=== PATIENT | female | born 1995 | race Caucasian/White ===

== ENCOUNTER 2016-07-25 13:30 | Day surgery (SDC) | payer OTHER ==
[~2016-07-25 13:30] MED LIST: ACETAMINOPHEN 500 MG TAB PO ONE; BUPIVACAINE/EPI 0.25% 30 ML SDV ONE; EPINEPHrine 30 MG/30 ML MDV ONE; PREGABALIN 150 MG CAP PO ONE; PROPOFOL 200 MG/20 ML VIAL ONE; PROPOFOL/EMULSION 500 MG/50 ML BOTTLE IV ONE; SCOPOLAMINE HYDROBROMIDE 1.5 MG PATCH TD ONE; SURGIFLO MATRIX KIT WITH THROMBIN TP ONE; TRANEXAMIC ACID 1,000 MG in NS 100 ML IV ONE; ceFAZolin 2 GM/DEXTROSE 100 ML IV ONE; fentaNYL 100 MCG/2 ML INJ ONE
[2016-07-25 13:55] LABS: HEMATOCRIT 43.7 % (38.0-47.0); HEMOGLOBIN 14.9 g/dL (12.6-16.3)
[2016-07-25] MEDS ORDERED: ACETAMINOPHEN 500 MG TAB ONE (14:05)
[2016-07-25] MEDS ORDERED: SCOPOLAMINE HYDROBROMIDE 1.5 MG PATCH TD ONE (14:05)
[2016-07-25] MEDS ORDERED: CEFAZOLIN 2 GM/DEXTROSE/100 ML BAG IV ONE (14:06)
[2016-07-25] MEDS ORDERED: PREGABALIN 150 MG CAP ONE (14:06)
[2016-07-25] MEDS ORDERED: PROPOFOL/EMULSION 500 MG/50 ML BOTTLE IV ONE ×2 (14:17→16:45)
[2016-07-25] MEDS ORDERED: ROCURONIUM 50 MG/5 ML VIAL ONE ×3 (14:17→14:39)
[2016-07-25] MEDS ORDERED: ONDANSETRON 4 MG/2 ML VIAL ONE ×2 (14:24→16:42)
[2016-07-25] MEDS ORDERED: DEXAMETHASONE 4 MG/ML VIAL ONE ×2 (14:24→16:42)
[2016-07-25] MEDS ORDERED: fentaNYL 100 MCG/2 ML INJ ONE ×3 (14:27→19:22)
[2016-07-25] MEDS ORDERED: MIDAZOLAM 2 MG/2 ML VIAL ONE ×2 (14:27→15:09)
[2016-07-25] MEDS ORDERED: PHENYLEPHRINE HCL 100 MCG/ML SYR ONE (14:34)
[2016-07-25] MEDS ORDERED: METOCLOPRAMIDE 10 MG/2 ML VIAL ONE (16:42)
[2016-07-25] MEDS ORDERED: RANITIDINE 50 MG/2 ML VIAL ONE (16:42)
[2016-07-25] MEDS ORDERED: LABETALOL HCL 5 MG/ML 20 ML MDV ONE (16:45)
[2016-07-25] MEDS ORDERED: NEOSTIGMINE METHYLSULFATE 5 MG/5 ML SYR ONE (18:29)
[2016-07-25] MEDS ORDERED: GLYCOPYRROLATE 0.2 MG/1 ML VIAL ONE ×2 (18:29)
[2016-07-25] MEDS ORDERED: HYDROmorphONE/DILAUDID 1 MG/ML SYR ONE (19:22)
[2016-07-25] MEDS ORDERED: NEOMY SULF/BACITRAC ZN/POLY 30 GM OINTTUBE TP ONE (20:15)
[2016-07-25] MEDS ORDERED: OXYCODONE/APAP 5/325 TAB ONE (20:59)
== END 2016-07-25 21:45 | disposition home or self-care (01) ==
LOC: EDSTATUS 13:30 → FSGY 13:30
PROVIDERS: ATTEND Orthopaedic Surgery Sports Medicine
DX: M25.851 Other specified joint disorders, right hip (principal); M24.051 Loose body in right hip; M24.851 Other specific joint derangements of right hip, not elsewhere classified
CPT/HCPCS: 29861; 29916; 76001; C1769; C1713; J0690; J1100; J1170; J1200; J2250; J2370; J2405; J2704; J2710; J2765; J2780; J3010; J3490

== ENCOUNTER 2016-07-28 05:57 | Inpatient (IN) | payer OTHER ==
--- NOTE | 2016-07-27 12:38 | PDANEPAE ---
ANE History of Present Illness R hip dysplasia ANE Past Medical History - Cardiovascular History Hx Hypertension: No Hx Arrhythmias: No Hx Chest Pain: No Hx Coronary Artery / Peripheral Vascular Disease: No Hx CHF / Valvular Disease: No Hx Palpitations: No - Pulmonary History Hx COPD: No Hx Asthma/Reactive Airway Disease: No Hx Recent Upper Respiratory Infection: No Hx Oxygen in Use at Home: No - Neurologic History Hx Cerebrovascular Accident: No Hx Seizures: No Hx Dementia: No - Endocrine History Hx Diabetes: No - Renal History Hx Renal Disorders: No - Liver History Hx Hepatic Disorders: No - Neurological & Psychiatric Hx Hx Neurological and Psychiatric Disorders: Yes - Cancer History Hx Cancer: No - Congenital Disorder History Hx Congenital Disorders: No - GI History Hx Gastrointestinal Disorders: No - Chronic Pain History Chronic Pain: Yes (RIGHT HIP) ANE Review of Systems - Exercise capacity METS (RN): 5 METS (active despite hip pain) - Systems Muscolosketal: Reports: joint pain (R hip pain secondary to hip dysplasia) Neurological: Reports: other (ADHD on meds) ANE Patient History - Allergies Allergies/Adverse Reactions: Sulfa (Sulfonamide Antibiotics) Allergy (Severe, Verified 07/16/16 11:00) Rash - Home Medications Home Medications: Dexmethylphenidate HCl [Focalin Xr] 25 mg PO DAILY 07/16/16 [Last Taken Unknown] Minocycline HCl [Minocin 100 mg] 100 mg PO DAILY 07/16/16 [Last Taken Unknown] - Anes Hx Anes Hx: post operative nausea and vomiting Hx Anesthesia Complications (with details): Anorexia and N/V for 2 weeks post op with previous surgery - Smoking Hx Smoking Status: Never smoked Marijuana use: No - Alcohol Use Alcohol Use: None ANE Labs/Vital Signs - Vital Signs Height: 177.8 cm Weight: 70.307 kg ANE Anesthesia Plan Anesthesia Plan: general endotracheal anesthesia (Plan GA intraoperatively plus JENNY for post op pain relief), epidural
[~2016-07-28 05:57] MED LIST changes: +ACETAMINOPHEN 500 MG TAB ONE; -ACETAMINOPHEN 500 MG TAB PO ONE; -BUPIVACAINE/EPI 0.25% 30 ML SDV ONE; +CEFAZOLIN 2 GM/DEXTROSE/100 ML BAG IV ONE; -EPINEPHrine 30 MG/30 ML MDV ONE; +LIDOCAINE 1% 2 ML INJ ONE; +PREGABALIN 150 MG CAP ONE; -PREGABALIN 150 MG CAP PO ONE; -PROPOFOL 200 MG/20 ML VIAL ONE; -PROPOFOL/EMULSION 500 MG/50 ML BOTTLE IV ONE; -SURGIFLO MATRIX KIT WITH THROMBIN TP ONE; -TRANEXAMIC ACID 1,000 MG in NS 100 ML IV ONE; -ceFAZolin 2 GM/DEXTROSE 100 ML IV ONE; -fentaNYL 100 MCG/2 ML INJ ONE
[2016-07-28] MEDS ORDERED: PREGABALIN 150 MG CAP PO ONE (06:00)
[2016-07-28] MEDS ORDERED: ACETAMINOPHEN 500 MG TAB PO ONE (06:00)
[2016-07-28] MEDS ORDERED: ceFAZolin 2 GM/DEXTROSE 100 ML IV ONE (06:00)
[2016-07-28] MEDS ORDERED: SCOPOLAMINE HYDROBROMIDE 1.5 MG PATCH TD ONE (06:00)
[2016-07-28] MEDS ORDERED: TRANEXAMIC ACID 1,000 MG in NS 100 ML IV ONE (06:00)
[2016-07-28] MEDS ORDERED: LR 1,000 ML IV ONE (06:27)
[2016-07-28] MEDS ORDERED: LIDOCAINE 1% 5 ML SDV ID PRN (06:27)
--- NOTE | 2016-07-28 06:36 | PDHPUP ---
History & Physical Update H&P update statement: This history and physical update is based on an assessment of the patient which was completed after admission or registration (within 24 hours), but prior to the surgery/procedure. H&P update: no change in patient's condition since H&P completed
[2016-07-28] MEDS ORDERED: LIDOCAINE 1% 5 ML SDV ONE (06:44)
--- NOTE | 2016-07-28 07:02 | PDANEPAE ---
ANE History of Present Illness Hip Dysplasia ANE Past Medical History - Cardiovascular History Hx Hypertension: No Hx Arrhythmias: No Hx Chest Pain: No Hx Coronary Artery / Peripheral Vascular Disease: No Hx CHF / Valvular Disease: No Hx Palpitations: No - Pulmonary History Hx COPD: No Hx Asthma/Reactive Airway Disease: No Hx Recent Upper Respiratory Infection: No Hx Oxygen in Use at Home: No - Neurologic History Hx Cerebrovascular Accident: No Hx Seizures: No Hx Dementia: No - Endocrine History Hx Diabetes: No - Renal History Hx Renal Disorders: No - Liver History Hx Hepatic Disorders: No - Neurological & Psychiatric Hx Hx Neurological and Psychiatric Disorders: Yes - Cancer History Hx Cancer: No - Congenital Disorder History Hx Congenital Disorders: No - GI History Hx Gastrointestinal Disorders: No - Chronic Pain History Chronic Pain: Yes (RT HIP,RT LEG) ANE Review of Systems - Exercise capacity METS (RN): 5 METS (5+ METS) - Systems Neurological: Reports: other (ADHD) ANE Patient History - Allergies Allergies/Adverse Reactions: Sulfa (Sulfonamide Antibiotics) Allergy (Severe, Verified 07/16/16 11:00) Rash - Home Medications Home medications: home medication list seen and reviewed Home Medications: Dexmethylphenidate HCl [Focalin Xr] 25 mg PO DAILY 07/16/16 [Last Taken 07/27/16 ] Minocycline HCl [Minocin 100 mg] 100 mg PO DAILY 07/16/16 [Last Taken 07/27/16] - NPO status NPO Since - Liquids (Date): 07/27/16 NPO Since - Liquids (Time): 20:30 NPO Since - Solids (Date): 07/27/16 NPO Since - Solids (Time): 19:30 - Anes Hx Anes Hx: post operative nausea (and anorexia) - Smoking Hx Smoking Status: Never smoked - Alcohol Use Alcohol Use: Rarely - Family Anes Hx Family Anes Hx: none ANE Labs/Vital Signs - Labs - CBC WBC: CBC reviewed and okay - Vital Signs Blood Pressure: 128/76 O2 Sat (%): 96 Height: 177.8 cm Weight: 70.307 kg ANE Physical Exam - Airway Neck exam: FROM Mallampati Score: Class 1 Mouth exam: normal dental/mouth exam (prominant upper teeth) - Pulmonary Pulmonary: no respiratory distress - Cardiovascular Cardiovascular: regular rate and rhythym - ASA Status ASA Status: I ANE Anesthesia Plan Anesthesia Plan: general endotracheal anesthesia, epidural (PSR postop pain relief)
[2016-07-28] MEDS ORDERED: fentaNYL 100 MCG/2 ML INJ ONE ×3 (07:14→12:42)
[2016-07-28] MEDS ORDERED: MIDAZOLAM 2 MG/2 ML VIAL ONE ×2 (07:14→12:42)
--- NOTE | 2016-07-28 07:27 | PDGENHP ---
History and Physical - Chief Complaint right hip pain History Information - Allergies/Home Medication List Allergies/Adverse Reactions: Sulfa (Sulfonamide Antibiotics) Allergy (Severe, Verified 07/16/16 11:00) Rash Home Medications: Dexmethylphenidate HCl [Focalin Xr] 25 mg PO DAILY 07/16/16 [Last Taken 07/27/16 ] Minocycline HCl [Minocin 100 mg] 100 mg PO DAILY 07/16/16 [Last Taken 07/27/16] I have personally reviewed and updated: medical history - Past Medical History no pertinent PMH - Surgical History Reports: no pertinent surgical hx - Family History Positive for: non-pertinent - Social History Smoking Status: Never smoked Alcohol Use: None Drug Use: None Review of Systems Constitutional: Reports: no symptoms EENMT: Reports: no symptoms Cardiac: Reports: no symptoms Respiratory: Reports: no symptoms Gastrointestinal: Reports: no symptoms Genitourinary: Reports: no symptoms Muscolosketal: Reports: joint pain Skin: Reports: no symptoms Neurological: Reports: no symptoms Hematologic/Lymphatic: Reports: no symptoms Immunologic/Allergy: Reports: no symptoms Physical Exam Temp Pulse Resp BP Pulse Ox 36.9 C 128/76 H 96 07/28/16 06:31 07/28/16 07:03 07/28/16 07:03 Constitutional: no apparent distress Eyes: PERRL Ears, Nose, Mouth, Throat: moist mucous membranes Cardiovascular: regular rate and rhythym Respiratory: no respiratory distress, clear to auscultation Gastrointestinal: soft, non-tender abdomen Skin: normal color Musculoskeletal: joint tenderness Neurologic: AAOx3, sensation intact bilaterally Psychiatric: interacting appropriately Lymph, Heme, Immunologic: no cervical LAD Assessment & Plan Assessment: Right hip dysplasia Plan: Right ANNELIESE
[2016-07-28] MEDS ORDERED: REMIFENTANIL HCL 1 MG VIAL ONE ×2 (07:31→10:10)
[2016-07-28] MEDS ORDERED: PROPOFOL/EMULSION 500 MG/50 ML BOTTLE IV ONE ×2 (07:32→10:12)
[2016-07-28] MEDS ORDERED: ONDANSETRON 4 MG/2 ML VIAL ONE (07:33)
[2016-07-28] MEDS ORDERED: DEXAMETHASONE 4 MG/ML VIAL ONE ×2 (07:33)
[2016-07-28] MEDS ORDERED: BUPIVACAINE 0.25% 30 ML SDV ONE ×2 (07:50→12:35)
[2016-07-28] MEDS ORDERED: CITRATE DEXTROSE SOLN 500 ML BAG ONE (07:59)
[2016-07-28] MEDS ORDERED: NALOXONE HCL 0.4 MG/ML INJ IVP PRN ×2 (08:37→12:05)
[2016-07-28] MEDS ORDERED: NARCOTIC DRIP BAG-TOTAL ALL TYPES EP PRN (08:37)
[2016-07-28] MEDS ORDERED: LIDOCAINE HCL 160 MG/4 ML LTA KIT TP ONE (10:16)
[2016-07-28] MEDS ORDERED: epHEDrine SULFATE 10 MG/ML SYR ONE (10:52)
[2016-07-28] MEDS ORDERED: LABETALOL HCL 5 MG/ML 20 ML MDV IVP PRN (12:05)
[2016-07-28] MEDS ORDERED: PROMETHAZINE HCL 25 MG/ML INJ IVP PRN (12:05)
[2016-07-28] MEDS ORDERED: DEXAMETHASONE 4 MG/ML VIAL IVP PRN (12:05)
[2016-07-28] MEDS ORDERED: OXYCODONE/APAP 5/325 TAB PO PRN (12:05)
[2016-07-28] MEDS ORDERED: fentaNYL 100 MCG/2 ML INJ IVP PRN (12:05)
[2016-07-28] MEDS ORDERED: MEPERIDINE 25 MG/ML SYR IVP PRN (12:05)
[2016-07-28] MEDS ORDERED: HYDROCODONE/APAP 5/325 TAB PO PRN (12:05)
[2016-07-28] MEDS ORDERED: LR 500 ML IV PRN (12:05)
[2016-07-28] MEDS ORDERED: ONDANSETRON 4 MG/2 ML VIAL IVP PRN ×2 (12:05→12:58)
[2016-07-28] MEDS ORDERED: METOCLOPRAMIDE 10 MG/2 ML VIAL IVP PRN (12:05)
[2016-07-28] MEDS ORDERED: DIAZEPAM 2 MG TAB PO PRN (12:58)
[2016-07-28] MEDS ORDERED: BISACODYL 10 MG SUPP PR PRN (12:58)
[2016-07-28] MEDS ORDERED: MAGNESIUM HYDROXIDE 30 ML UDCUP PO PRN (12:58)
[2016-07-28] MEDS ORDERED: LACTULOSE 20 GM/30 ML UDCUP PO PRN (12:58)
--- NOTE | 2016-07-28 13:31 | POSTANESTH ---
Post Anesthetic Evaluation Cardiovascular Status: Normal, Stable Respiratory Status: Normal, Stable Level of Consciousness/Mental Status: Can Participate in Eval, Alert and Oriented, Mildly Sleepy, Arousable Pain Control: Adequate, Prn Tx Ordered (required JENNY bolu plus Versed/Fent in PACU, good control now) Nausea/Vomiting Control: Adequate, Prn Tx Ordered (existing scope patch in place ) Complications Possibly Related to Anesthesia: None Noted Notes: JENNY working
[2016-07-28] MEDS: HYDROmorph 10MCG/ML&BUP 0.05% in 100ML NS EP SCH (13:36)
[2016-07-28] MEDS: REGARDING ANTICOAG MISC SCH (14:12)
[2016-07-28] MEDS: DC NARCS MISC SCH (14:12)
[2016-07-28] MEDS: ACETAMINOPHEN 325 MG TAB PO PRN (17:57)
[2016-07-28] MEDS: SENNOSIDES/DOCUSATE SODIUM TAB PO SCH (21:26)
--- NOTE | 2016-07-28 22:29 | SUROPNOTE ---
JOSE Operative Report - Surgery Surgery was performed at [facility] 07/28/16 Diagnosis: Right 1. Hip Acetabular Dysplasia Operation: Right~Oneyda Acetabular Osteotomy (ANNELIESE) Surgeon: Malachi Jeong MD Rn Orthopaedic:~~Abner ENRIQUEZ Anesthetic: General + epidural Procedure: General anesthetic. Antibiotics given. Cell saver in use. Fluoroscopy. Phase 1: Position lateral, diagonal skin incision between ischial tuberosity and greater trochanter as for posterior hip approach. Blunt split of glut max fibers. Identification of fat pad overlying sciatic nerve. Exposure of sciatic nerve under fat pad, gently retracting it away-medially to ischial tuberosity. Exposure of subcotoloid fossa proximal to short rotators. Using osteotomes and under fluoroscopy, osteotomy of subcotoloid fossa to sciatic notch proximal to ischial spine. Closure of lateral cut. Patient is turned supine. Phase 2: Skin incision just distal to ASIS. Using diathermy the iliac spine was exposed and inguinal ligament + Sartorious were retracted medially, taking the LFCN with them, protecting it. Inner ilium was dissected from iliacus muscle bluntly , with a cob and swab. Dissection continued towards lateral superior ramus pubis. Using fluoroscopy an osteotomy of lateral superior ramus, just medial to tear drop, was performed with curved fish mouth osteotome. Phase 3: Osteotomy lines of the ilium were marked with diathermy as pre planned according to XR/CT and expected correction of acatabulum. 2 Shanz screws were drilled into central acetabular fragment, corresponding with planned correction angles, in order to mobilize central acetabular fragment after osteotomy is complete. ~Iliac osteotomy was performed with reciprocating saw and the main acetabular fragment was moved to realign weight bearing position. After confirmation of correction using fluoroscopy in AP and false profile planes, the fragment was fixed with 2 - 5.5mm ~full threaded~screws~and 1 - 4mm~~full threaded~screw. Inguinal ligament and Sartorious were attached back to ASIS through drill holes. Incision was closed according to soft tissue layers. Skin was closed with subdermal Monocryl. Final fluoro shots were obtained to confirm position/correction. After surgery Eliane~moved both lower limbs and had no NV motor compromise. Evaluation under anesthesia: IR at 90 degrees hip flexion prior to ANNELIESE was 40~degrees and after ANNELIESE was 25~ degrees. Bleedin~cc into cell-saver, 270~of blood products were returned to patient. Post op instructions: 1. Non~weight bearing crutches for 2~weeks, PWB for 4w 2. Epidural analgesia for 24-48 hours 3. Continuous SCD 4. Aspirin 81 mg X1 day once Epidural is discontinued 5. Avoid hip flexion past 90 and hip External rotation. 6. PT according to my recommendations at follow up visit Kind regards, Dr. Malachi Jeong .
[2016-07-29] MEDS: HYDROmorph 10MCG/ML&BUP 0.05% in 100ML NS EP SCH (01:21)
[2016-07-29 05:52] LABS: HEMATOCRIT 29.5 % (38.0-47.0); MEAN CELL HEMOGLOBIN 30.9 pg (27.9-34.1); MEAN CELL HEMOGLOBIN CONCENTR. 33.9 g/dL (32.4-36.7); RED BLOOD CELL COUNT 3.24 10^6/uL (4.18-5.33); RED CELL DISTRIBUTION WIDTH 12.5 % (11.5-15.2)
[2016-07-29 06:17] LABS: ANION GAP 5 mEq/L (8-16); CALCIUM 8.6 mg/dL (8.5-10.4); CARBON DIOXIDE 25 mEq/l (22-31); CHLORIDE 105 mEq/L (97-110); CREATININE 0.7 mg/dL (0.6-1.0); GLOMERULAR FILTRATION RATE > 60; GLUCOSE 88 mg/dL (70-100); POTASSIUM 3.8 mEq/L (3.5-5.2); SODIUM 135 mEq/L (134-144)
[2016-07-29] MEDS: DEXMETHYLPHENIDATE HCL 25 MG PO SCH (10:16)
[2016-07-29] MEDS: DC NARCS MISC SCH (10:16)
[2016-07-29] MEDS: SENNOSIDES/DOCUSATE SODIUM TAB PO SCH ×2 (10:17→20:53)
[2016-07-29] MEDS: REGARDING ANTICOAG MISC SCH (10:17)
[2016-07-29] MEDS: ACETAMINOPHEN 325 MG TAB PO PRN ×2 (10:19→17:21)
[2016-07-29] MEDS: POLYETHYLENE GLYCOL 3350 17 GM PKT PO PRN (10:46)
[2016-07-30] MEDS: ACETAMINOPHEN 325 MG TAB PO PRN ×4 (00:11→18:28)
[2016-07-30] MEDS: HYDROmorph 10MCG/ML&BUP 0.05% in 100ML NS EP SCH (06:18)
[2016-07-30] MEDS: DC NARCS MISC SCH (07:35)
[2016-07-30] MEDS: REGARDING ANTICOAG MISC SCH (07:35)
--- NOTE | 2016-07-30 07:58 | SOAPPROG ---
SOAP Progress Note Assessment/Plan: Assessment: well functioning JENNY, with no apparent significant discomfort Plan:no adjustments to dosing at this time. Will plan D/C trial of epidural either Thursday or . 07/30/16 07:56 Subjective: late entry for pt visit on 07/29/16 at 1215 patient complains of 9/10 pain at rest. States it's better than it was pre- surgery and she is used to it and tolerating it fine.does complain of lightheadedness when sitting at the side of the bed. Objective: Vital Signs Temp Pulse Resp BP Pulse Ox 36.8 C 80 14 91/57 L 97 07/30/16 07:28 07/30/16 07:28 07/30/16 07:28 07/30/16 07:28 07/30/16 07:28 Laboratory Results 07/29/16 05:15 07/29/16 05:15 07/29/16 07/30/16 07/31/16 05:59 05:59 05:59 Intake Total 4930 3900 Output Total 3400 3700 Balance 1530 200 pt resting comfortably in bed, browsing the Internet on her handheld device cath site clean and dry ICD10 Worksheet Patient Problems: Problems Problem Status Onset Hip dysplasia, congenital Acute - ICD10 Problem Qualifiers (1) Hip dysplasia, congenital
[2016-07-30] MEDS: POLYETHYLENE GLYCOL 3350 17 GM PKT PO PRN (07:59)
--- NOTE | 2016-07-30 09:18 | SOAPPROG ---
LORENZO Progress Note Assessment/Plan: Assessment: 1st post op day RIGHT Periacetabular Osteotomy Stable post op H/H Plan: Wean down and off epidural tomorrow (Tuesday 05/30) Transition to oral analgesics Pelvis Xray Up with PT/OT 07/30/16 09:13 Subjective: Eliane was seen yesterday at 1830. At that time she appeared comfortable but said she had "6/10" pain. The epidural was running at 6. She denies any cp, sob or nausea; she had some dizziness getting up to the side of the bed. Objective: Vital Signs Temp Pulse Resp BP Pulse Ox 36.8 C 80 14 91/57 L 97 07/30/16 07:28 07/30/16 07:28 07/30/16 07:28 07/30/16 07:28 07/30/16 07:28 Laboratory Results 07/29/16 05:15 07/29/16 05:15 07/29/16 07/30/16 07/31/16 05:59 05:59 05:59 Intake Total 4930 3900 250 Output Total 3400 3700 850 Balance 1530 200 -600 Well appearing in NAD Right hip: dressings clean dry intact some surrounding edema and ecchymosis NVI distally Full ROM of foot and ankle - Pending Discharge Pending Discharge Within 48 Hours: Yes Pending Discharge Date: 08/01/16 Pending Discharge Time: 11:00 ICD10 Worksheet Patient Problems: Problems Problem Status Onset Hip dysplasia, congenital Acute
[2016-07-30] MEDS: SENNOSIDES/DOCUSATE SODIUM TAB PO SCH ×2 (09:19→21:21)
[2016-07-30] MEDS: DEXMETHYLPHENIDATE HCL 25 MG PO SCH (10:08)
[2016-07-30] MEDS ORDERED: HYDROmorphONE/DILAUDID 2 MG TAB PO PRN (12:53)
[2016-07-30] MEDS ORDERED: TAPENTADOL HCL 50 MG TAB PO PRN (12:53)
[2016-07-30] MEDS ORDERED: oxyCODONE IR 15 MG TAB PO PRN (12:53)
[2016-07-30] MEDS ORDERED: traMADol 50 MG TAB PO PRN (12:53)
[2016-07-30] MEDS: ASPIRIN EC 81 MG TAB PO SCH (13:23)
[2016-07-30] MEDS: oxyCODONE IR 5 MG TAB PO PRN ×2 (15:04→18:28)
--- NOTE | 2016-07-30 17:14 | SOAPPROG ---
SOAP Progress Note Assessment/Plan: Assessment: well functioning JENNY, with no apparent significant discomfort Plan:no adjustments to dosing at this time. Will plan D/C trial of epidural either Thursday or . 07/30/16 07:56 07/30/16 17:11 doing well. pain was 6/10 before the JENNY was turned off. Is 7/10 now. JENNY out tip intact site clean and dry dermatomes resolved Objective: Vital Signs Temp Pulse Resp BP Pulse Ox 36.6 C 113 H 16 123/86 H 100 07/30/16 15:55 07/30/16 15:55 07/30/16 15:55 07/30/16 15:55 07/30/16 15:55 Laboratory Results 07/29/16 05:15 07/29/16 05:15 07/29/16 07/30/16 07/31/16 05:59 05:59 05:59 Intake Total 4930 3900 1250 Output Total 3400 3700 4175 Balance 1530 200 -2925 ICD10 Worksheet Patient Problems: Problems Problem Status Onset Hip dysplasia, congenital Acute - ICD10 Problem Qualifiers (1) Hip dysplasia, congenital
--- NOTE | 2016-07-30 21:14 | SOAPPROG ---
LORENZO Progress Note Assessment/Plan: Assessment: 2st post op day RIGHT Periacetabular Osteotomy Stable post op H/H Plan: Epidural now out Transition to oral analgesics; Oxycodone 5-15mg Q3hrs Pelvis Xray tomorrow Up with PT/OT 07/30/16 09:13 07/30/16 21:11 Subjective: Eliane was seen at 1530 today. She is doing well and appears comfortable in bed. When I saw her the epidural was still running at 4. She denies any cp, sob, or nausea. Objective: Vital Signs Temp Pulse Resp BP Pulse Ox 36.5 C 101 H 15 120/74 99 07/30/16 17:52 07/30/16 19:35 07/30/16 19:35 07/30/16 19:35 07/30/16 19:35 Laboratory Results 07/29/16 05:15 07/29/16 05:15 07/29/16 07/30/16 07/31/16 05:59 05:59 05:59 Intake Total 4930 3900 2600 Output Total 3400 3700 5125 Balance 1530 200 -2525 Well appearing in NAD Right hip: dressings clean dry intact surrounding ecchymosis and edema NVI distally Full ROM of foot and ankle - Pending Discharge Pending Discharge Within 48 Hours: Yes Pending Discharge Date: 08/01/16 Pending Discharge Time: 11:00 ICD10 Worksheet Patient Problems: Problems Problem Status Onset Hip dysplasia, congenital Acute
[2016-07-30] MEDS: morphINE SR 15 MG TAB PO SCH (21:20)
[2016-07-31] MEDS: oxyCODONE IR 5 MG TAB PO PRN ×5 (01:40→20:38)
[2016-07-31] MEDS: ACETAMINOPHEN 325 MG TAB PO PRN (01:40)
[2016-07-31] MEDS: SENNOSIDES/DOCUSATE SODIUM TAB PO SCH ×2 (09:05→20:38)
[2016-07-31] MEDS: morphINE SR 15 MG TAB PO SCH ×2 (09:06→20:38)
[2016-07-31] MEDS: ASPIRIN EC 81 MG TAB PO SCH (09:06)
[2016-07-31] MEDS: ONDANSETRON DISINTEGRATING 4 MG TAB PO PRN ×2 (09:58→20:39)
[2016-07-31] MEDS: REGARDING ANTICOAG MISC SCH (10:06)
[2016-07-31] MEDS: DC NARCS MISC SCH (10:06)
[2016-07-31] MEDS: DEXMETHYLPHENIDATE HCL 25 MG PO SCH (11:18)
--- NOTE | 2016-07-31 15:38 | SOAPPROG ---
LORENZO Progress Note Assessment/Plan: Assessment: 3rd post op day RIGHT Periacetabular Osteotomy Stable post op H/H Plan: Harper now out Oral analgesics; Oxycodone 5-15mg Q3hrs Up with PT/OT 07/30/16 09:13 07/30/16 21:11 07/31/16 15:35 Subjective: Eliane is doing better today. Her pain is well controlled with Oxycodone. She' s been up with PT, getting her pelvis Xray now. Wants to go home tomorrow. Objective: Vital Signs Temp Pulse Resp BP Pulse Ox 36.4 C 73 16 114/66 90 L 07/31/16 11:49 07/31/16 11:49 07/31/16 11:49 07/31/16 11:49 07/31/16 11:49 Laboratory Results 07/29/16 05:15 07/29/16 05:15 07/30/16 07/31/16 08/01/16 05:59 05:59 05:59 Intake Total 3900 3100 Output Total 3700 7075 Balance 200 -3975 Well appearing in NAD Right Hip: dressings clean dry intact surrounding ecchymosis and edema NVI distally Full ROM of foot and ankle - Pending Discharge Pending Discharge Within 24 Hours: Yes Pending Discharge Date: 08/01/16 Pending Discharge Time: 11:00 ICD10 Worksheet Patient Problems: Problems Problem Status Onset Hip dysplasia, congenital Acute
[2016-07-31 20:13] VITALS: RESP 16
[2016-07-31] MEDS: POLYETHYLENE GLYCOL 3350 17 GM PKT PO PRN (20:39)
[2016-08-01] MEDS: oxyCODONE IR 5 MG TAB PO PRN ×4 (00:17→18:53)
[2016-08-01] MEDS: SENNOSIDES/DOCUSATE SODIUM TAB PO SCH (09:00)
[2016-08-01] MEDS: morphINE SR 15 MG TAB PO SCH (09:00)
[2016-08-01] MEDS: ASPIRIN EC 81 MG TAB PO SCH (09:02)
[2016-08-01] MEDS: ONDANSETRON DISINTEGRATING 4 MG TAB PO PRN (09:02)
[2016-08-01 10:34] LABS: HEMATOCRIT 34.7 % (38.0-47.0); HEMOGLOBIN 11.9 g/dL (12.6-16.3); MEAN CELL HEMOGLOBIN 30.6 pg (27.9-34.1); MEAN CELL HEMOGLOBIN CONCENTR. 34.3 g/dL (32.4-36.7); MEAN CELL VOLUME 89.2 fL (81.5-99.8); RED BLOOD CELL COUNT 3.89 10^6/uL (4.18-5.33); RED CELL DISTRIBUTION WIDTH 12.4 % (11.5-15.2)
[2016-08-01 10:56] LABS: ALANINE AMINOTRANSFERASE 41 IU/L (9-52); ALBUMIN 4.1 g/dL (3.5-5.0); ALKALINE PHOSPHATASE 42 IU/L (38-126); ANION GAP 20 mEq/L (8-16); ASPARTATE AMINOTRANSFERASE 48 IU/L (14-46); BILIRUBIN,TOTAL 0.7 mg/dL (0.1-1.4); CALCIUM 9.8 mg/dL (8.5-10.4); CARBON DIOXIDE 18 mEq/l (22-31); CHLORIDE 97 mEq/L (97-110); CREATININE 0.6 mg/dL (0.6-1.0); GLOMERULAR FILTRATION RATE > 60; GLUCOSE 95 mg/dL (70-100); POTASSIUM 3.5 mEq/L (3.5-5.2); SODIUM 135 mEq/L (134-144); TOTAL PROTEIN 6.9 g/dL (6.3-8.2)
[2016-08-01 11:30] LABS: IONIZED CALCIUM 1.15 MMOL/L (1.12-1.30)
[2016-08-01] MEDS: DEXMETHYLPHENIDATE HCL 25 MG PO SCH (11:30)
[2016-08-01] MEDS: DC NARCS MISC SCH (11:31)
[2016-08-01] MEDS: REGARDING ANTICOAG MISC SCH (11:31)
[2016-08-01 11:44] VITALS: TEMP 97.4
[2016-08-01 15:46] VITALS: BP 125/70; PULSE 75; O2SAT 95
== END 2016-08-01 19:00 | disposition home or self-care (01) | DRG 482 ==
LOC: F3N 05:57
PROVIDERS: ADMIT Orthopaedic Surgery Sports Medicine; ATTEND Orthopaedic Surgery Sports Medicine
PROC: 0SQ90ZZ Repair Right Hip Joint, Open Approach (ICD-10-PCS; principal; 2016-07-28 07:15)
DX: Q65.89 Other specified congenital deformities of hip (principal)
CPT/HCPCS: 82947-QW; 97116-GP; 97161-GP; 97165-GO; 97530-GP; 97535-GO; C1713; J0690; J1100; J1170; J2250; J2405; J2704; J3010; J7060

== ENCOUNTER 2017-06-22 05:49 | Day surgery (SDC) | payer OTHER ==
--- NOTE | 2017-06-21 22:46 | PDGENHP ---
History and Physical - Chief Complaint R Hip Pain - History of Present Illness 1. 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 ~S/P two failed Hip scopes (Labral repair and labral reconstruction) 2014 3. Left BL Hip Dysplasia, minimally symptomatic HISTORY OF PRESENT ILLNESS: Maileis a 21 y.o.~very ~active female~who I have had the pleasure to consult on today. I have enjoyed meeting her. She~lives in [place], [place]. ~Eliane Garciaworks as a Student. ~She~is Student at [employer]; she~has no children. ~Maileenjoys volleyball, dancing, and competitive skiing. Eliane's right hip pain started , with no~previous complaints and with some~recalled trauma or injury. ~Mailedoes not have~a known history of hip dysplasia. In February 2012, Eliane tore her Left ACL and underwent a reconstruction by Dr. Flores. ~During rehabilitation of her left knee, her right hip began becoming painful, and common thought was it was due to over compensation. ~While playing volleyball again in March 2013, her left knee buckled, and she re-tore her ACL. ~A bone grafting of her tunnel, followed by an ACL reconstruction revision occurred April 2013 and October 2013 respectively, which was performed by Dr. Obrien. ~Between the tunnel grafting and ACL revision she underwent a Right Hip Arthroscopy Labral Repair, by Dr. Araiza. ~When she continued to have trouble and pain with her Right Hip, Dr. Araiza recommended for her to see Dr. Jeronimo. ~ Eliane underwent IA Right Hip Cortisone injections, twice, once with each Drs. Araiza and Phani, without positive results. ~Dr. Jeronimo perfomed a Right Hip Arthroscopy with Labral Reconstruction on April 06, 2014. ~Since these two surgeries, Eliane feels that her hip pain has gotten progressively worse. Dr. Jeronimo, has since suggested Dr. Gracia to evaluate for dysplasia, and was told that she does not have hip dysplasia. ~She underwent a thorough COMPUTER ASSISTANT exam which presented as normal. ~[facility]iane with Wilber Danlos. Presentation today is of anterior right hip pain with subjective reports of "instabilty" (hip wobble and can't be trusted). ~The hip does~wake her~at night and does~click and catch on her. Sitting can be uncomfortable for her. Maile does not~report suffering from lower back pain episodes. Mailehas~participated in physical therapy and has~tried other conservative measures including hip injections twice, dry needling, massage. . She~has not~ received sufficient symptomatic improvement. Mailehas~utilized medication for pain management, including NSAID. Mailehas used medication for several months. Mailenotes Left Hip Pain rarely. Maileunderstands that she~has a hip and pelvis problem which should be researched and wishes to get a better understanding of her~hip status, followed by an establishment of a treatment strategy, hoping sheRadhawould be able to get back to her~well being active life. History: Past medical history: ~ Patient ~has no past medical history on file. Relevant familial history: None which is relevant Past surgical history: No. Surgery Anesthesia Year Outcome 1 Left ACL Reconstruction General 2012 Poor 2 Left Knee Tunnel Bone Graft General 2013 Good 3 Left ACL Reconstruction Revision General 2013 Good 4 Right Hip Arthroscopy General 09/2013 Good 5 Right Hip Arthroscopy w/Labral Reconstruction General 03/2014 Good Mailedescribes problematic issues with general anesthesia which includes loss of appetite, mild nausea. I have reviewed, verified and agree with the past medical, surgical, family and social history. Current Medications:Radhacurrently has no medications in their medication list. ALLERGIES:~has no allergies on file. Objective: Physical Examination: Maileis 5 feet 10 inches tall and weighs 160 Lbs. Maileis AAO x3; she~is well- nourished, in NAD. Skin is warm and dry. ~Breathing is non-labored. ~CV with RRR by pulse. Abdomen is soft, NTND. ~Currently, she~walks with a limp gait. She ~has no leg length discrepancy and presents with significant signs of joint laxity (Beighton score 8-9). She~is fit looking. NO pain with flexion and extension of spine Trendelenburg sign is negative and proprioception is normal, both~sides. Lower spine examination is negative for sciatic or femoral nerve irritation with negative SLR &~femoral stretch tests. Range of motion of the spine is normal~for flexion, extension, and rotations, with no associated pain. SIJs examination is normal with normal~JOE in relation and local tenderness. Strength, Sensation and pulses are normal - bilaterally Ankles and knees exams are normal~and no~mal-alignment is evident. Hip ROM (degrees): ER At 90~hip FL IR At 90~hip FL IR Neutral hip ER Neutral hip AB AD FL EX R 55 30 30 20 45 5 120 5 L 55 20 25 20 50 5 110 5 Specific hip and pelvis tests: Quadrant JOE Roll Add. Longus R +++ +++ + Negative L ++ Negative Negative Negative Glut. Med ITB Pos. Imp R + Negative Negative L Negative Negative Negative Squeeze test measured normal Bony Symphysis pubis is pain free to touch while concentric activity of the rectus abdominis, does not~produce pain at its insertion. Ilio Psos specific tests are positive for pain during cycling for the right hip~ and remarkable for non painful snap Greater trochanteric burse is painful on the right hip. Piriformis tests: FAIR is negative, with no local signs of neuritis related to sciatic nerve. Thigh circumference is symmetric with no evidence for muscle atrophy on both~ side. Hamstrings tests are negative~tendinopathy Imaging: Radiology studies which I have personally reviewed, analyzed and measured are below: XR: AP of the hip and pelvis: Performed in a suboptimal technique Coccyx to pubic symphysis distance 0.9 cm. (both pre surgeries and recent XR were reviewed) Specific measurements show: NSA~ Lat. Cam LCE Lat. Pincer C.Over~sign Sharp's angle Head~Coverage % Sourcil~Angle ATDmm R 139 - 20~([place]) 23 ([facility]) - ~12-1 43 56 6~- Flat, non congruent~~ N L N - 21 - - 41 62 5 - as above N Excursion index and LCE supports hip Dysplasia. [place] Lines are preserved. No Pathological signs are seen in the Symphysis Pubis. No Pathological signs are seen at the Ischial tuberosity. ~~~~~~~~~~~~~ Pos. wall sign Sup. Lat. OA Joint Space-WBZ Joint Space-Medial NAD R Negative Negative 5.7 mm 5.6 15.7 mm L Negative Negative 6.2 mm 5.1 mm 17.8mm Sclerosis ~~Dysplasia Cysts ISS Comments R Negative + Negative Negative L Negative + Negative Negative X Table lateral: Anterior cam lesion is not seen~- Previous good cam resection is seen MRI shows: Pre surgeries MRI shows hypertrophic Dysplastic labrum, good cartilage. 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 Physical examination, imaging, and her~story correspond with the diagnosis mentioned above. I have explained the diagnosis and its significance to Maileand we have discussed the various possible treatment options and their implications with her. These include bony realignment procedure in the form of a ANNELIESE (periacetabular osteotomy) aiming to address the above pathology. After two failed hip scopes, both done technically well, I have no doubt the culprit is her borderline to prabhu Hip dysplasia which is further worsen by her hyperlaxity. CT with 3D recon will be done in order to evaluate femoral torsion/acetabular version. Maileis happy with this plan. I have also supplied her~with handouts, outlining the expected surgical treatment and rehab involved. I wish Maileall the best, ~~ Shayna Edwards ATC History Information - Allergies/Home Medication List Allergies/Adverse Reactions: Sulfa (Sulfonamide Antibiotics) Allergy (Severe, Verified 05/25/17 16:16) Other-Enter Comments Home Medications: FOCALIN XR 05/25/17 [Last Taken Unknown] I have personally reviewed and updated: medical history - Past Medical History no pertinent PMH - Surgical History Reports: no pertinent surgical hx - Family History Positive for: non-pertinent - Social History Smoking Status: Never smoked Review of Systems Review of Systems: Physical Exam Physical Exam:
[2017-06-22] MEDS ORDERED: PREGABALIN 150 MG CAP PO ONE (06:11)
[2017-06-22] MEDS ORDERED: ACETAMINOPHEN 500 MG TAB PO ONE (06:11)
[2017-06-22] MEDS ORDERED: ceFAZolin 2 GM/SWFI 2 GM/20 ML SYR IVP ONE (06:11)
[2017-06-22] MEDS ORDERED: LR 1,000 ML IV ONE (06:12)
[2017-06-22] MEDS ORDERED: LIDOCAINE 1% 2 ML INJ ID PRN (06:12)
[2017-06-22] MEDS ORDERED: MIDAZOLAM 2 MG/2 ML VIAL IVP ONE (06:44)
--- NOTE | 2017-06-22 06:44 | PDANEPAE ---
ANE History of Present Illness s/p POA 1 year ago here for removal retained hardware ANE Past Medical History - Cardiovascular History Hx Hypertension: No Hx Arrhythmias: No Hx Chest Pain: No Hx Coronary Artery / Peripheral Vascular Disease: No Hx CHF / Valvular Disease: No Hx Palpitations: No - Pulmonary History Hx COPD: No Hx Asthma/Reactive Airway Disease: No Hx Recent Upper Respiratory Infection: No Hx Oxygen in Use at Home: No Hx Sleep Apnea: No Sleep Apnea Screening Result - Last Documented: Negative - Neurologic History Hx Cerebrovascular Accident: No Hx Seizures: No Hx Dementia: No - Endocrine History Hx Diabetes: No - Renal History Hx Renal Disorders: No - Liver History Hx Hepatic Disorders: No - Neurological & Psychiatric Hx Hx Neurological and Psychiatric Disorders: Yes Neurological / Psychiatric History Comment: ADHD - Cancer History Hx Cancer: No - Congenital Disorder History Hx Congenital Disorders: No - GI History Hx Gastrointestinal Disorders: No - Other Health History Other Health History: ACNE-face;. torn labrum in 2013;R hip pain. - Chronic Pain History Chronic Pain: Yes (R hip) - Surgical History Prior Surgeries: R [place] Acetabular Osteotomy 07-28-16;. R hip scope,labral repair 07-25-16;. RT HIP LABRAL RECONSTRUCTION 03/2014;. R hip labral repair ' . LT KNEE X3 ANE Review of Systems Review of Systems: - Exercise capacity Exercise capacity: >=4 METS METS (RN): 4 METS ANE Patient History - Allergies Allergies/Adverse Reactions: Sulfa (Sulfonamide Antibiotics) Allergy (Severe, Verified 05/25/17 16:16) Other-Enter Comments - Home Medications Home medications: home medication list seen and reviewed Home Medications: FOCALIN XR 05/25/17 [Last Taken Unknown] - NPO status NPO Status: no food or drink >8 hours NPO Since - Liquids (Date): 06/21/17 NPO Since - Liquids (Time): 22:00 NPO Since - Solids (Date): 06/10/17 NPO Since - Solids (Time): 22:00 - Anes Hx Anes Hx: no prior problems - Smoking Hx Smoking Status: Never smoked - Alcohol Use Alcohol Use: None - Family Anes Hx Family Anes Hx: none ANE Labs/Vital Signs - Vital Signs Blood Pressure: 121/78 Heart Rate: 73 Respiratory Rate: 16 O2 Sat (%): 97 Height: 177.8 cm Weight: 72.575 kg ANE Physical Exam - Airway Neck exam: FROM Mallampati Score: Class 2 Mouth exam: normal dental/mouth exam - Pulmonary Pulmonary: no respiratory distress, clear to auscultation - Cardiovascular Cardiovascular: regular rate and rhythym, no murmur, rub, or gallop - ASA Status ASA Status: II ANE Anesthesia Plan Anesthesia Plan: GA w LMA
[2017-06-22] MEDS ORDERED: LIDOCAINE 1% 300 MG/30 ML SDV ONE (06:47)
[2017-06-22] MEDS ORDERED: PROPOFOL 200 MG/20 ML VIAL ONE (06:48)
[2017-06-22] MEDS ORDERED: fentaNYL 100 MCG/2 ML INJ ONE ×3 (06:48→10:08)
[2017-06-22] MEDS ORDERED: BUPIVACAINE 0.25% 30 ML SDV ONE (06:48)
[2017-06-22] MEDS ORDERED: PROPOFOL/EMULSION 500 MG/50 ML BOTTLE IV ONE ×2 (06:48→08:24)
[2017-06-22] MEDS ORDERED: LIDOCAINE 2% 100 MG/5 ML SYR ONE (06:51)
[2017-06-22] MEDS ORDERED: SCOPOLAMINE HYDROBROMIDE 1 MG/3 DAYS PATCH TD ONE ×2 (07:03→07:15)
[2017-06-22] MEDS ORDERED: DEXAMETHASONE 4 MG/ML VIAL ONE (07:26)
[2017-06-22] MEDS ORDERED: oxyCODONE IR 5 MG TAB PO PRN (09:52)
[2017-06-22] MEDS ORDERED: ACETAMINOPHEN 500 MG TAB PO PRN (09:52)
[2017-06-22] MEDS ORDERED: NALOXONE HCL 0.4 MG/ML INJ IVP PRN (09:52)
[2017-06-22] MEDS ORDERED: DIAZEPAM 5 MG/ML 1 ML SYR IVP PRN (09:52)
[2017-06-22] MEDS ORDERED: PROMETHAZINE HCL 25 MG/ML INJ IVP PRN (09:52)
[2017-06-22] MEDS ORDERED: HYDROCODONE/APAP 5/325 TAB PO PRN (09:52)
[2017-06-22] MEDS ORDERED: ONDANSETRON 4 MG/2 ML VIAL IVP PRN (09:52)
--- NOTE | 2017-06-22 09:54 | POSTANESTH ---
Post Anesthetic Evaluation Cardiovascular Status: Normal, Stable, Similar to Pre-Op Cond Respiratory Status: Normal, Stable, Similar to Pre-op Cond. Level of Consciousness/Mental Status: Can Participate in Eval, Alert and Oriented Pain Control: Adequate, Prn Tx Ordered Nausea/Vomiting Control: Adequate, Prn Tx Ordered Complications Possibly Related to Anesthesia: None Noted
[2017-06-22] MEDS: HYDROmorphONE/DILAUDID 2 MG/ML INJ IVP PRN ×2 (10:07→10:17)
[2017-06-22] MEDS ORDERED: HYDROmorphONE/DILAUDID 2 MG/ML INJ ONE (10:08)
[2017-06-22] MEDS ORDERED: ONDANSETRON 4 MG/2 ML VIAL ONE (10:09)
[2017-06-22] MEDS: fentaNYL 100 MCG/2 ML INJ IVP PRN ×2 (10:11→10:22)
[2017-06-22] MEDS ORDERED: OXYCODONE/APAP 5/325 TAB PO PRN (11:28)
[2017-06-22 11:56] VITALS: BP 118/61
== END 2017-06-22 12:15 | disposition home or self-care (01) ==
LOC: FSGY 05:49
PROVIDERS: ATTEND Orthopaedic Surgery Sports Medicine
PROC: 0QP604Z Removal of Internal Fixation Device from Right Upper Femur, Open Approach (ICD-10-PCS; principal; 2017-06-22 07:15)
PROC: 0LQJ0ZZ Repair Right Hip Tendon, Open Approach (ICD-10-PCS; principal; 2017-06-22 07:15)
DX: T84.84XA Pain due to internal orthopedic prosthetic devices, implants and grafts, initial encounter (principal); Q79.6 Ehlers-Danlos syndromes
CPT/HCPCS: C1713; J0171; J0690; J1100; J1170; J2001; J2250; J2405; J2704; J3010